=== PATIENT | male | born 1950 | race Caucasian/White ===

== ENCOUNTER 2022-01-12 10:16 | Emergency (ER) | payer MEDICARE, OTHER ==
[~2022-01-12] VITALS: Ht 177.8 cm; Wt 89.8 kg
[~2022-01-12 10:16] MED LIST: ACET325 PO; CIPR500 PO; HYDR1TAB94 PO; LOSA25 PO; SENN187 PO; [UNRECOGNIZED DRUG - OTHER]
[2022-01-12 11:30] LABS: BASOPHILS ABSOLUTE AUTO 0.04 K/mm3 (0.00-0.23); BASOPHILS PERCENT AUTO 1 % (0-2); EOSINOPHILS PERCENT AUTO 3 % (0-6); Hematocrit 48.2 % (37.0-53.0); Hemoglobin 16.8 g/dL (13.5-17.5); IMMATURE GRAN ABSOLUTE AUTO 0.01 K/mm3 (0.00-0.10); IMMATURE GRAN PERCENT AUTO 0 % (0-1); LYMPHOCYTES ABSOLUTE AUTO 1.93 K/mm3 (0.84-5.20); LYMPHOCYTES PERCENT AUTO 27 % (21-46); MONOCYTES ABSOLUTE AUTO 0.74 K/mm3 (0.16-1.47); MONOCYTES PERCENT AUTO 10 % (4-13); Mean Corpuscular HGB 32.2 pg (26.0-34.0); Mean Corpuscular HGB Conc 34.9 g/dL (31.5-36.5); Mean Corpuscular Volume 92 fL (80-100); Mean Platelet Volume 11.1 fL (9.1-12.4); NEUTROPHILS ABSOLUTE AUTO 4.29 K/mm3 (1.96-9.15); NEUTROPHILS PERCENT AUTO 59 % (41-73); Platelet Count 228 K/mm3 (150-400); RDW Coefficient Variation 12.5 % (11.7-14.2); RDW Standard Deviation 43.1 fL (35.1-46.3); Red Blood Cell Count 5.22 M/mm3 (4.30-5.90); White Blood Cell Count 7.21 K/mm3 (4.00-11.30)
[2022-01-12 11:51] LABS: Alanine Aminotransfer (ALT/SGP 26 U/L (12-78); Albumin, Blood 3.7 g/dL (3.4-5.0); Alk Phos 76 U/L (50-136); Anion Gap 6 mmol/L (6-16); Aspartate Aminotrans (AST/SGOT 15 U/L (12-37); Bilirubin, Total 0.9 mg/dL (0.1-1.0); Blood Urea Nitrogen 16 mg/dL (8-24); Bun/Creatinine Ratio 14.7 (12.0-20.0); CO2, Blood 26 mmol/L (21-32); Chloride, Blood 108 mmol/L (98-108); Creatinine, Blood 1.09 mg/dL (0.60-1.20); Globulin, Blood 3.6 g/dL (2.2-4.0); Glomerular Filtration Rate >60 (60-); Glucose, Blood 94 mg/dL (70-99); Potassium, Blood 3.9 mmol/L (3.5-5.5); Sodium, Blood 140 mmol/L (136-145); Total Protein, Blood 7.3 g/dL (6.4-8.2)
== END 2022-01-12 15:30 | disposition home or self-care (01) ==
LOC: ER 10:16
PROVIDERS: Physician Assistant
DX: T78.40XA Allergy, unspecified, initial encounter (principal); Z88.1 Allergy status to other antibiotic agents; Z88.5 Allergy status to narcotic agent
CPT/HCPCS: 36415; 80053; 85025

== ENCOUNTER 2024-03-22 06:08 | Day surgery (SDC) | payer MEDICARE, OTHER ==
[2024-03-22] VITALS (17 sets, daily range): BP systolic 86–182; BP diastolic 40–123
[~2024-03-22] VITALS: Ht 177.8 cm; Wt 90.4 kg
[~2024-03-22 06:08] MED LIST changes: +ANASTROZOLE1 M7 PO; +B COMPLEX FORM0.4 MG PO; +CARV6.25 PO; +FINA5 PO; +LISI5 PO; +VITAMIN D5000 UNIT PO
[2024-03-22] MEDS ORDERED: NITR.4SL SL (06:09)
[2024-03-22] MEDS ORDERED: MAGNESIUM CITR100 MG PO (06:09)
[2024-03-22] MEDS ORDERED: RED YEAST RICE55 MG PO (06:09)
[2024-03-22] MEDS ORDERED: ORAZINC220 MG PO (06:10)
[2024-03-22] MEDS ORDERED: TUMERIC PO (06:10)
[2024-03-22] MEDS ORDERED: HYDCHL25 PO (06:31)
[2024-03-22] MEDS ORDERED: NS 1,000 ML IV ONE (06:34)
[2024-03-22] MEDS ORDERED: Benzocaine Oral Spray 0.5ML UD ONE (06:37)
[2024-03-22] MEDS ORDERED: Phenylephrine HCl 100 MCG/ML-NS 10MLSYR (1MG/10ML) ONE (06:43)
[2024-03-22] MEDS ORDERED: Lidocaine HCl 2% 20 ML MDV ONE (06:43)
[2024-03-22] MEDS ORDERED: EpiNEPhrine 1 MG/1 ML 1ML Vial ONE (06:43)
[2024-03-22] MEDS ORDERED: ePHEDrine Sulfate 50 MG/ML 1ML Injection ONE (06:44)
[2024-03-22] MEDS ORDERED: NS 100 ML IV ONE (06:47)
--- NOTE | 2024-03-22 07:44 | NUR ---
DR JOSEPH EVALUATED PT'S AND NEXT STEPS SINCE UNABLE TO PERFORM PROCEDURE.
--- NOTE | 2024-03-22 08:05 | NUR ---
PT AWAKE AND CONVERSING APPROPRIATELY, DENIES PAIN, COUGH MUCH IMPROVED, VSS.
--- NOTE | 2024-03-22 08:23 | NUR ---
PT DRESSED SELF WITHOUT ISSUE, IV REMOVED-CANNULA INTACT. PT AND RECEIVED DISCHARGE INSTRUCTIONS, MED LIST AND AFTER CARE INSTRUCTIONS; VERBALIZED GOOD UNDERSTANDING. PT LEFT FACILITY VIA W/C, CONDITION STABLE.
[2024-03-22] MEDS ORDERED: Propofol 10mg/ml 20 ml Vial (Procedural) IV ONE (14:21)
== END 2024-03-22 08:23 | disposition home or self-care (01) ==
LOC: MHTC 06:08
DX: I34.0 Nonrheumatic mitral (valve) insufficiency (principal); R06.02 Shortness of breath; I12.9 Hypertensive chronic kidney disease with stage 1 through stage 4 chronic kidney disease, or unspecified chronic kidney disease; N18.2 Chronic kidney disease, stage 2 (mild); E78.5 Hyperlipidemia, unspecified; I26.99 Other pulmonary embolism without acute cor pulmonale; Z88.1 Allergy status to other antibiotic agents; Z88.5 Allergy status to narcotic agent; Z88.8 Allergy status to other drugs, medicaments and biological substances; Z79.899 Other long term (current) drug therapy; Z53.9 Procedure and treatment not carried out, unspecified reason
CPT/HCPCS: 93312; 93325; A9270; J0171; J2371; J2704; J7030

== ENCOUNTER 2024-06-20 06:06 | Day surgery (SDC) | payer MEDICARE ==
[2024-06-20] VITALS (9 sets, daily range): BP systolic 108–138; BP diastolic 70–96
[~2024-06-20] VITALS: Ht 177.8 cm; Wt 91.2 kg
[~2024-06-20 06:06] MED LIST changes: -CARV6.25 PO; +Carvedilol12.5 MG PO; +HYDCHL25 PO; +MAGNESIUM CITR100 MG PO; +NITR.4SL SL; +ORAZINC220 MG PO; +RED YEAST RICE55 MG PO; +TUMERIC PO
[2024-06-20] MEDS ORDERED: NS 1,000 ML IV ONE ×2 (06:29→08:11)
[2024-06-20] MEDS ORDERED: NS 250 ML IV ONE (06:29)
[2024-06-20] MEDS ORDERED: Verapamil HCL 2.5 MG/ML 2ML Injection ONE (06:29)
[2024-06-20] MEDS ORDERED: Heparin Sodium 1000 Units/ML 10ML MDV ONE (06:29)
[2024-06-20] MEDS ORDERED: Nitroglycerin 2 MG/20 ML BTL ONE (06:29)
[2024-06-20] MEDS ORDERED: FentaNYL Citrate 50 MCG/ML 2 ML Injection ONE (08:10)
[2024-06-20] MEDS ORDERED: Midazolam HCl 1MG / ML 2ML Vial ONE (08:11)
[2024-06-20] MEDS ORDERED: HydrALAZINE HCl 20 MG / ML 1ML Vial ONE (10:03)
--- NOTE | 2024-06-20 11:15 | NUR ---
PT BACK TO RECOVERY ROOM. PT DRWOSY, BUT EASY TO WAKE. PT DEMONSTRATES CORRECT UNDERSTANDING OF R WRIST RESTRICTIONS. TR BAND TO R WRIST, NO HEMATOMA OR BLEEDING NOTED. SPOUSE AT BEDSIDE.
--- NOTE | 2024-06-20 12:30 | NUR ---
ATTEMPTED TO DEFLATE 2CC FROM TR BAND, BUT FLASHING OCCURED. 2CC REPLACED FOR A TOTAL OF 11CC STILL IN BAND. WILL TRY AGAIN. PT GIVEN LUNCH TRAY.
--- NOTE | 2024-06-20 12:50 | NUR ---
TR BAND FULLY DEFLATED.
--- NOTE | 2024-06-20 14:00 | NUR ---
PATIENT DISCHARGED HOME AT THIS TIME. ALL PATIENT BELONGINGS LEFT WITH PATIENT. PIV REMOVED WITHOUT DIFFICULTY, CATHETER INTACT. TR BAND REMOVED, SITE C/D/I SOFT/NONTENDER, NO EVIDENCE OF BLEEDING. CLOTH DOT AND ARM BOARD IN PLACE. VSS ON RA. PATIENT WHEELED TO HOSPITAL ENTRANCE AND SPOUSE ABLE TO PROVIDE TRANSPORTATION HOME
== END 2024-06-20 14:00 | disposition home or self-care (01) ==
LOC: MHTC 06:06
DX: I34.0 Nonrheumatic mitral (valve) insufficiency (principal); I25.10 Atherosclerotic heart disease of native coronary artery without angina pectoris; I27.20 Pulmonary hypertension, unspecified; I26.99 Other pulmonary embolism without acute cor pulmonale; I44.0 Atrioventricular block, first degree; R06.02 Shortness of breath; I10 Essential (primary) hypertension; R93.1 Abnormal findings on diagnostic imaging of heart and coronary circulation
CPT/HCPCS: 76937; 93456; 99152; 99153; C1769; C1887; C1894; J0360; J1644; J2250; J3010; J7030; J7050; Q9967

== ENCOUNTER 2024-08-24 14:24 | Emergency (ER) | payer MEDICARE, OTHER ==
[~2024-08-24] VITALS: Ht 177.8 cm; Wt 91.2 kg
[2024-08-24 15:08] LABS: BASOPHILS ABSOLUTE AUTO 0.06 K/mm3 (0.00-0.23); BASOPHILS PERCENT AUTO 1 % (0-2); EOSINOPHILS ABSOLUTE AUTO 0.27 K/mm3 (0.00-0.68); EOSINOPHILS PERCENT AUTO 3 % (0-6); Hematocrit 50.1 % (37.0-53.0); Hemoglobin 17.5 g/dL (13.5-17.5); IMMATURE GRAN ABSOLUTE AUTO 0.01 K/mm3 (0.00-0.10); IMMATURE GRAN PERCENT AUTO 0 % (0-1); LYMPHOCYTES PERCENT AUTO 27 % (21-46); MONOCYTES PERCENT AUTO 10 % (4-13); Mean Corpuscular HGB 31.9 pg (26.0-34.0); Mean Corpuscular HGB Conc 34.9 g/dL (31.5-36.5); Mean Corpuscular Volume 91 fL (80-100); Mean Platelet Volume 11.3 fL (9.1-12.4); NEUTROPHILS ABSOLUTE AUTO 4.93 K/mm3 (1.96-9.15); NEUTROPHILS PERCENT AUTO 60 % (41-73); Platelet Count 196 K/mm3 (150-400); RDW Coefficient Variation 12.8 % (11.7-14.2); RDW Standard Deviation 43.4 fL (35.1-46.3); Red Blood Cell Count 5.48 M/mm3 (4.30-5.90); White Blood Cell Count 8.27 K/mm3 (4.00-11.30)
[2024-08-24 15:28] LABS: Albumin, Blood 3.9 g/dL (3.4-5.0); Bilirubin, Total 1.5 mg/dL (0.1-1.0); Bun/Creatinine Ratio 13.3 (12.0-20.0); Calcium, Blood 9.6 mg/dL (8.5-10.1); Creatinine, Blood 1.5 mg/dL (0.60-1.20); Globulin, Blood 3.9 g/dL (2.2-4.0); Potassium, Blood 4.3 mmol/L (3.5-5.5); Total Protein, Blood 7.8 g/dL (6.4-8.2)
[2024-08-24 16:55] VITALS: BP 178/98
== END 2024-08-24 17:00 | disposition home or self-care (01) ==
LOC: ER 14:24
PROVIDERS: Physician Assistant
DX: I77.1 Stricture of artery (principal); R22.1 Localized swelling, mass and lump, neck; Z79.899 Other long term (current) drug therapy; Z88.5 Allergy status to narcotic agent; Z88.1 Allergy status to other antibiotic agents; Z88.8 Allergy status to other drugs, medicaments and biological substances
CPT/HCPCS: 70498; 80053; 85025; 99284-25; Q9967